=== PATIENT | female | born 1985 | race Caucasian/White ===

== ENCOUNTER 2020-06-14 09:15 | Emergency (ER) | payer OTHER ==
[2020-06-14 09:57] LABS: HCG UR QUAL NEGATIVE
--- NOTE | 2020-06-14 10:06 | ED Physician Documentation ---
PD HPI UPPER EXT INJURY - Stated complaint Stated Complaint: LT ARM PX - Chief complaint Chief Complaint: Trauma Ext - History obtained from History obtained from: Patient - History of Present Illness Location: Right, Elbow Type of injury: Fall Where injury occurred: Home Timing - onset: Today Timing - duration: Hours Timing - details: Abrupt onset, Still present Improved by: Rest, Immobilization Worsened by: Moving, Palpating Associated symptoms: No: Weakness, Numbness, Tingling Contributing factors: No: Anticoagulated Similar symptoms before: Has not had sx before Recently seen: Not recently seen - Additonal information Additional information: 35-year-old female was walking downstairs with some garbage in her hands when she slipped on the steps and slid down 7 steps. She landed on her left elbow and has pain to the elbow. She does not have pain to the shoulder she denies any pain in her wrist or hand and states that she does have some pain in her tailbone and in her left hip but she is walking fine and does not feel there are any fractures associated with this. 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 Review of Systems Constitutional: denies: Fever Eyes: denies: Decreased vision Ears: denies: Ear pain Nose: denies: Congestion Throat: denies: Sore throat Cardiac: denies: Chest pain / pressure Respiratory: denies: Cough GI: denies: Vomiting : denies: Dysuria Musculoskeletal: reports: Extremity pain, Joint pain, Joint swelling. denies: Back pain Neurologic: denies: Generalized weakness, Focal weakness, Numbness PD PAST MEDICAL HISTORY - Past Surgical History General: Cholecystectomy - Allergies Allergies/Adverse Reactions: Allergies Allergy/AdvReac Type Severity Reaction Status Date / Time No Known Drug Allergies Allergy Verified 06/14/20 09:21 - Social History Does the pt smoke?: No Smoking Status: Never smoker PD ED PE NORMAL - Vitals Vital signs reviewed: Yes (hypertensive ) - General General: Alert and oriented X 3, No acute distress, Well developed/nourished - HEENT HEENT: Atraumatic, PERRL, EOMI - Neck Neck: Supple, no meningeal sign, No bony TTP - Cardiac Cardiac: RRR, No murmur - Respiratory Respiratory: No respiratory distress, Clear bilaterally, Other (no chest wall tenderness to palpation ) - Abdomen Abdomen: Soft, Non tender - Back Back: No CVA TTP, No spinal TTP - Derm Derm: Normal color, Warm and dry, No rash - Extremities Extremities: No deformity, Other (There is specific point tenderness to the olecranon and not over the radial head. She is able to supinate and pronate the forearm with some pain in the mid ulna. 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, No motor deficit, No sensory deficit, Normal speech Eye Opening: Spontaneous Motor: Obeys Commands Verbal: Oriented GCS Score: 15 - Psych Psych: Normal mood, Normal affect Results - Vitals Vitals: Vital Signs - 24 hr 06/14/20 09:21 Temperature 36 C L Heart Rate 82 Respiratory 18 Rate Blood Pressure 151/115 H O2 Saturation 97 Oxygen O2 Source Room air - Labs Labs: Laboratory Tests 06/14/20 09:48 Urine HCG, Qual NEGATIVE - Rads (name of study) elbow L Radiology: Prelim report reviewed (Impression: No fracture or dislocation.), EMP read indepedently, See rad report PD MEDICAL DECISION MAKING - ED course Complexity details: reviewed results, re-evaluated patient, considered differential, d/w patient ED course: Previously well 35-year-old female with a fall down steps has injured her left elbow. She does not have evidence of a fracture on x-ray examination she does have a lot of pain and pain with movement and she is placed into a splint and sling. Departure - Departure Disposition: 01 Home, Self Care Clinical Impression: Elbow injury Qualifiers: Encounter type: initial encounter Laterality: left Qualified Code(s): S59.902A - Unspecified injury of left elbow, initial encounter Condition: Stable Instructions: ED Sprain Elbow Follow-Up: JEANIE Ortiz [Provider Group]
--- NOTE | 2020-06-14 11:01 | XRAY Report ---
PROCEDURE: Elbow 3 View LT INDICATIONS: fell, now with elbow pain, limited rom TECHNIQUE: 3 views of the elbow were acquired. COMPARISON: None. FINDINGS: Bones: No fractures or dislocations. No suspicious bony lesions. Soft tissues: No elbow joint effusion. No suspicious soft tissue calcifications. IMPRESSION: 1. No fracture or dislocation. Reviewed by: Fadi León MD on 06/14/2020 11:00 AM [facility] Approved by: Fadi León MD on 06/14/2020 11:00 AM [facility] Station ID: [id number]
[2020-06-14 11:31] VITALS: BP 130/85
== END 2020-06-14 11:17 | disposition home or self-care (01) ==
LOC: ED 09:15
DX: S59.902A Unspecified injury of left elbow, initial encounter (principal); W10.9XXA Fall (on) (from) unspecified stairs and steps, initial encounter; Y93.E9 Activity, other interior property and clothing maintenance; Y92.009 Unspecified place in unspecified non-institutional (private) residence as the place of occurrence of the external cause
CPT/HCPCS: 81025; 99282; 99284

== ENCOUNTER 2020-12-01 18:15 | Emergency (ER) | payer OTHER ==
[2020-12-01] MEDS ORDERED: IBUPROFEN 800 MG TABLET PO STA (18:34)
[2020-12-01] MEDS ORDERED: HYDROcod/ACETAM 5/325 MG TABLET PO STA (19:56)
--- NOTE | 2020-12-01 19:57 | ED Physician Documentation ---
PD HPI LOWER EXT INJURY - Stated complaint Stated Complaint: RT FOOT INJ - Chief complaint Chief Complaint: Trauma Ext - History obtained from History obtained from: Patient - History of Present Illness PD HPI LOW EXT INJURY LOCATION: Right, Foot Where injury occurred: Home Pain level max: 6 Pain level now: 5 Improved by: Rest, Ice, Immobilization Worsened by: Moving, Palpating Associated symptoms: No: Weakness, Numbness, Tingling, Swelling Similar symptoms before: Has not had sx before Recently seen: Not recently seen - Additional information Additional information: Patient is a 35-year-old female who presents to the emergency department after dropping a box on her right foot at about 430 today. Worse with movement, better with rest. She was given Motrin in the waiting room but is still having pain. Review of Systems Constitutional: denies: Fever, Chills GI: denies: Vomiting, Diarrhea : denies: Now EGA Skin: denies: Rash Musculoskeletal: denies: Neck pain, Back pain Neurologic: denies: Headache PD PAST MEDICAL HISTORY - Past Medical History Past Medical History: No - Past Surgical History Past Surgical History: Yes General: Cholecystectomy - Present Medications Home Medications: Ambulatory Orders Medication Instructions Recorded Confirmed Nuva Ring 12/01/20 - Allergies Allergies/Adverse Reactions: Allergies Allergy/AdvReac Type Severity Reaction Status Date / Time No Known Drug Allergies Allergy Verified 12/01/20 18:23 - Living Situation Living Situation: reports: With family Living Arrangement: reports: At home - Social History Does the pt smoke?: No Smoking Status: Never smoker PD ED PE NORMAL - Vitals Vital signs reviewed: Yes - General General: Alert and oriented X 3, No acute distress - HEENT HEENT: Moist mucous membranes - Derm Derm: Warm and dry - Extremities Extremities: Other (Tender to palpation over the dorsum of the right foot. Mild swelling. Mild bruising. No gross deformity. Neurovascular intact.) - Neuro Neuro: Alert and oriented X 3 Results - Vitals Vitals: Vital Signs - 24 hr 12/01/20 12/01/20 18:20 20:48 Temperature 36.2 C L Heart Rate 94 65 Respiratory 16 16 Rate Blood Pressure 139/78 H 129/83 H O2 Saturation 97 100 Oxygen O2 Source Room air - Rads (name of study) Right foot x-ray Radiology: Prelim report reviewed, EMP read contemporaneously, See rad report (No acute abnormality) PD MEDICAL DECISION MAKING - ED course Complexity details: reviewed results, re-evaluated patient, considered differential, d/w patient ED course: 35-year-old female with what appears to be a right foot contusion. No acute findings on x-ray. Declines crutches or a postop shoe. Pain well controlled. Patient counseled regarding signs and symptoms for which I believe and urgent re-evaluation would be necessary. Patient with good understanding of and agreement to plan and is comfortable going home at this time This document was made in part using voice recognition software. While efforts are made to proofread this document, sound alike and grammatical errors may occ ur. Departure - Departure Disposition: 01 Home, Self Care Clinical Impression: Contusion of foot, right Qualifiers: Encounter type: initial encounter Qualified Code(s): S90.31XA - Contusion of right foot, initial encounter Condition: Good Instructions: ED Sprain Foot Follow-Up: RORY LANCASTER III, MD [Primary Care Provider] - Within 1 week Comments: Follow-up with your doctor for further care. You may bear weight as tolerated. There are no acute fractures on your x-ray tonight. Discharge Date/Time: 12/01/20 20:54
--- NOTE | 2020-12-01 20:45 | XRAY Report ---
PROCEDURE: Foot 3 View RT INDICATIONS: Trauma TECHNIQUE: 4 views of the foot were acquired. COMPARISON: None. FINDINGS: Bones: No fractures or dislocations. Mild irregularity at the first metatarsal head. No suspicious bony lesions. Screw within the first metatarsal. Soft tissues: No tibiotalar joint effusion. Achilles tendon appears normal. IMPRESSION: No acute osseous abnormality. Reviewed by: Fredy Sheppard MD on 12/01/2020 8:43 PM PDT Approved by: Fredy Sheppard MD on 12/01/2020 8:43 PM PDT Station ID: [id number]
[2020-12-01 20:48] VITALS: BP 129/83
== END 2020-12-01 20:54 | disposition home or self-care (01) ==
LOC: ED 18:15
DX: S90.31XA Contusion of right foot, initial encounter (principal); W20.8XXA Other cause of strike by thrown, projected or falling object, initial encounter; Y92.009 Unspecified place in unspecified non-institutional (private) residence as the place of occurrence of the external cause
CPT/HCPCS: 73630; 99283; 99284; A9270